=== PATIENT | male | born 1960 | race Caucasian/White ===

== ENCOUNTER 2023-09-05 10:56 | Emergency (ER) | payer BC, SELFPAY ==
[2023-09-05 10:56] VITALS: BP 147/91; PULSE 67; RESP 15; O2SAT 99
--- NOTE | 2023-09-05 11:06 | W.ED.GENAD ---
HPI General Mode of arrival: EMS. Date/Time Provider Initiated Documentation: 09/05/23 10:56. Limitations to Documentation: no limitations. Information obtained by: patient. History of Present Illness 63 year old M presents to the emergency department with the chief complaint of fall skiing, head pain, described as moderate, Patient started experiencing this hour(s) (1) No relieving factors improve symptom(s), No exacerbating factors reported . Patient notes no other symptoms.; denies chest pain. Patient did receive the following treatments prior to arrival, none Related Data Home Medications Medication Instructions Recorded Confirmed aspirin 81 mg capsule 81 mg PO DAILY 09/05/23 09/05/23 doxazosin PO DAILY 09/05/23 finasteride PO DAILY 09/05/23 ofloxacin 0.3 % ear drops 5 drp otic (ear) BID 7 days #10 mL 09/05/23 Previous Rx's Medication Instructions Recorded ofloxacin 0.3 % ear drops 5 drp otic (ear) BID 7 days #10 mL 09/05/23 Allergies Allergy/AdvReac Type Severity Reaction Status Date / Time No Known Allergies Allergy Unverified 09/05/23 11:00 General Stated Complaint: AMS/LOC LAURITA: 3 Review of Systems All systems reviewed & are unremarkable except as noted in HPI and below Constitutional Constitutional: Denies chills, Denies fever(s) and Denies weakness Cardiovascular Cardiovascular: Denies chest pain and Denies dyspnea Respiratory Respiratory: Denies cough and Denies dyspnea Gastrointestinal Gastrointestinal: Denies abdominal pain, Denies nausea and Denies vomiting Genitourinary Genitourinary: Denies dysuria Musculoskeletal Musculoskeletal: Denies joint swelling Integumentary/Breasts Skin/Breast: Denies rash Neurologic Neurologic: Denies weakness Exam Const General: no acute distress Orientation: alert [facility] Head: normal to inspection Ears: external ears normal General nose exam: external nose normal Mouth: moist mucous membranes Eyes General: appearance normal, both eyes and all related structures Neck Neck: normal visual inspection Resp Effort & Inspection: normal respiratory effort and able to speak in complete sentences Auscultation: clear to auscultation bilaterally Cardio Rate: regular rate GI Palpation: soft and nontender Skin General skin exam: no rashes or lesions noted Neuro General: patient alert and patient oriented x3 Extrem General: normal to inspection Psych Mental Status: mental status grossly normal Course Vital Signs Vital signs: Vital Signs Pulse 67 09/05/23 10:56 Respiratory Rate 15 09/05/23 10:56 Blood Pressure 147/91 H 09/05/23 10:56 Pulse Oximetry 99 09/05/23 10:56 Pulse 67 09/05/23 10:56 Respiratory Rate 15 09/05/23 10:56 Respiratory Effort Normal 09/05/23 10:58 Blood Pressure 147/91 H 09/05/23 10:56 Blood Pressure Position Sitting 09/05/23 10:56 Pulse Oximetry 99 09/05/23 10:56 Oxygen Delivery Method Room Air 09/05/23 10:56 Oxygen Flow Rate 0 09/05/23 10:56 Medical Decision Making 63-year-old male with a history of an enlarged prostate, mitral valve prolapse, not on any anticoagulation, comes in after a fall while skiing. He states he was feeling well in his usual state of health going down a trail wearing a helmet when he lost control and fell, hitting his head and thinks he lost consciousness for 10 to 15 seconds. He denies ever having any chest pain trouble breathing abdominal pain back pain leg pain, denies any pain in his neck is in a c-collar with EMS. He is alert and oriented x 4 and appears well on exam answering all questions appropriately with clear speech. He has no signs of trauma to the head cranial nerves II through XII are intact no midline C-spine tenderness soft abdomen no chest tenderness or back tenderness. Given his age and the fall and reported brief loss of consciousness we will proceed with CT head and C-spine to evaluate for traumatic injury. Imaging negative patient stable c-collar removed has no midline C-spine tenderness full range of motion without any pain so cervical collar cleared. No new pain anywhere other than patient notes that he had some right ear discomfort after scuba diving about a week ago. His right external auditory canal is inflamed and appears to have a otitis externa, tympanic membrane appears normal. Will start him on antibiotic otic drops. He is stable for discharge, advised to follow-up with primary care return precautions given Differential Diagnosis Differential Diagnosis: tbi, concussion, otitis externa Imaging Data Radiologic Study: Attestation: I personally reviewed and interpreted this imaging study as follows: Imaging: X-Ray Radiologist's impression: EXAM: CT HEAD CERVICAL SPINE WO CLINICAL HISTORY: fall skiing, pain. TECHNIQUE: Imaging Protocol: Axial computed tomography images with coronal and sagittal reformatted images were created and reviewed COMPARISON: No exams were available for comparison FINDINGS: Head CT Ventricles and Extra axial spaces: Normal in size and morphology for the patient's age. Hemorrhage: None. Cerebral parenchyma: No evidence of mass or acute infarct. Midline shift: None. Brainstem/Cerebellum: Normal. Calvarium: Normal. Visualized Paranasal sinuses/Mastoids: Mild amount of fluid in the inferior mastoid air cells. Soft tissues: Unremarkable. Cervical Spine CT BONES: Vertebral body heights are maintained. Alignment is normal. There is no evidence of acute fracture. Degenerative disc changes and facet degenerative changes are seen . SOFT TISSUES: No paraspinal hematoma. The airway appears intact. No pneumothorax is seen at the lung apices. IMPRESSION: Head CT: No acute abnormality. C-spine CT: Degenerative changes, no acute abnormality. Quality:SDOH Health Related Social Needs: No Data to Display [facility] All Active Problems (Updated 09/05/23 @ 12:27 by Eulogio Edward MD) Otitis externa (Acute) Blunt head trauma (Acute) Social History Smoking/Tobacco Use Status: Never Smoking risk assessment performed?: Yes Alcohol Intake: current Alcohol Intake frequency: a few times a month Alcohol type: wine Drug use: Never Substance use type: does not use Housing: house [facility] Have you Been Recently Intoxicated or Drunk Within the Last 30 days?: No Have you Ever Experienced Previous Episodes of Alcohol Withdrawal?: No Have you ever Experienced Withdrawal Seizures?: No Have you ever Experienced Delirium Tremens(DT)s?: No Have you ever undergone Alcohol Rehabilitation Treatment (i.e, inpt ot outpatient treatment programs)?: No Have you ever Experienced Blackouts?: No Have you ever Combined Alcohol with other Downers within the last 90 days?: No Have you ever Combined Alcohol with any other Substance of Abuse during the last 90 days?: No Result: 0 Discharge Plan Disposition Patient Disposition: Home Condition: Stable Discharge Details Clinical Impression: Blunt head trauma, Otitis externa ED Provider: Eulogio Edward Home Meds and New Rx's Prescriptions: New ofloxacin 0.3 % drops 5 drp otic (ear) BID 7 Days Qty: 10 0RF Continued aspirin 81 mg capsule 81 mg PO DAILY finasteride PO DAILY doxazosin PO DAILY Discharge Instructions Instructions: Otitis Externa (ED) Additional Instructions: Your CAT scan did not show any concerning findings, you do have evidence of a right sided ear canal infection If you are still having ear discomfort in a week follow-up with your primary care provider or urgent care If you feel more ill or have new symptoms such as severe chest pain return to the emergency department
[2023-09-05] MEDS: Acetaminophen 500 MG TAB 1000 MG PO (11:19)
--- NOTE | 2023-09-05 11:48 | DI.CT_ITS ---
Exam(s) CT HEAD CERVICAL SPINE WO EXAM: CT HEAD CERVICAL SPINE WO CLINICAL HISTORY: fall skiing, pain. TECHNIQUE: Imaging Protocol: Axial computed tomography images with coronal and sagittal reformatted images were created and reviewed COMPARISON: No exams were available for comparison FINDINGS: Head CT Ventricles and Extra axial spaces: Normal in size and morphology for the patient's age. Hemorrhage: None. Cerebral parenchyma: No evidence of mass or acute infarct. Midline shift: None. Brainstem/Cerebellum: Normal. Calvarium: Normal. Visualized Paranasal sinuses/Mastoids: Mild amount of fluid in the inferior mastoid air cells. Soft tissues: Unremarkable. Cervical Spine CT BONES: Vertebral body heights are maintained. Alignment is normal. There is no evidence of acute frac ture. Degenerative disc changes and facet degenerative changes are seen . SOFT TISSUES: No paraspinal hematoma. The airway appears intact. No pneumothorax is seen at the lung apices. IMPRESSION: Head CT: No acute abnormality. C-spine CT: Degenerative changes, no acute abnormality. RADIATION DOSE DELIVERED: 1,150.69mGy.cm Total DLP DATA REPOSITORY: All CT scans at this facility are submitted to the National Radiology Data Registry (NRDR) Dose Index Registry (DIR) with the [employer] ([employer]). RADIATION OPTIMIZATION: All CT scans at this facility use at least one of these dose optimization te chniques: automated exposure control; mA and/or kV adjustment per patient size (includes targeted exa ms where dose is matched to clinical indication); or iterative reconstruction.
[2023-09-05 12:34] VITALS: BP 147/91; PULSE 67; RESP 15; O2SAT 99
== END 2023-09-05 12:44 | disposition home or self-care (01) ==
LOC: ER 12:49
PROVIDERS: Emergency Provider Emergency Medicine
DX: S09.8XXA Other specified injuries of head, initial encounter (principal); R51.9 Headache, unspecified; I10 Essential (primary) hypertension; H60.91 Unspecified otitis externa, right ear; V00.321A Fall from snow-skis, initial encounter
CPT/HCPCS: 99284; 70450; 72125; 99283